=== PATIENT | male | born 1960 | race Hispanic/Latino ===

== ENCOUNTER 2018-10-05 08:44 | Emergency (ER) | payer OTHER ==
[2018-10-05 10:21] LABS: Basophils % (Auto) 0.4 % (0.0-1.8); Eosinophils # (Auto) 0.4 K/mm3 (0.0-0.4); Eosinophils % (Auto) 3.3 % (0.0-4.3); Hematocrit 46.6 % (35.5-45.6); Hemoglobin 16.2 gm/dl (11.8-15.2); Lymphocytes # (Auto) 1.4 K/mm3 (1.2-5.4); Lymphocytes % (Auto) 11.1 % (13.4-35.0); Mean Corpuscular HGB Conc 35 % (32-34); Mean Corpuscular Volume 90 fl (84-94); Monocytes # (Auto) 1.1 K/mm3 (0.0-0.8); Monocytes % (Auto) 8.9 % (0.0-7.3); Platelet Count 280 K/mm3 (140-440); Red Blood Count 5.17 M/mm3 (3.65-5.03); Red Cell Distribution Width 13.2 % (13.2-15.2)
[2018-10-05 10:32] LABS: INR 0.94 (0.87-1.13)
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
[2018-10-05 10:47] LABS: Alanine Aminotransferase 25 units/L (7-56); BUN/Creatinine Ratio 15; Blood Urea Nitrogen 15 mg/dL (9-20); Calcium 9.3 mg/dL (8.4-10.2); Hemolysis Index 14
--- NOTE | 2018-10-05 10:54 | XRay Report ---
CHEST 1 VIEW INDICATION: Syncope. COMPARISON: None FINDINGS: Support devices: None. Heart: Within normal limits. Lungs/Pleura: No acute air space or interstitial disease. Additional findings: None. IMPRESSION: No acute findings. Signer Name: Shayan Burks Jr, MD Signed: 10/05/2018 10:50 AM Workstation Name: [id number]
--- NOTE | 2018-10-05 11:27 | Cat Scan Report ---
CT BRAIN: 10/05/2018 INDICATION / CLINICAL INFORMATION: Syncope. COMPARISON: None available. FINDINGS: BRAIN/INTRACRANIAL STRUCTURES: Unenhanced CT images of the brain demonstrate no evidence of acute int racranial abnormality. Ventricles and sulci are normal in size and shape. Some patchy areas of white matter hypoattenuation is present in the subcortical white matter of the c erebral hemispheres bilaterally, consistent with small vessel ischemic change. Demyelination could brown ve a similar appearance, in the proper clinical circumstances. There is no evidence of acute large vessel territory ischemic injury, hemorrhage, or mass. There are no abnormal extra-axial fluid collections. EXTRACRANIAL STRUCTURES: Unremarkable. IMPRESSION: No evidence of acute abnormality. Patchy areas of white matter hypoattenuation is described above. All CT scans at this location are performed using dose reduction to ALARA by means of automated expos ure control. Signer Name: Montana Welch MD Signed: 10/05/2018 11:22 AM Workstation Name: [id number]
[2018-10-05 12:53] LABS: Bilirubin,Urine NEG (Negative); Blood,Urine NEG (Negative); Color,Urine Yellow (Yellow); Mucus,Urine FEW /HPF; Protein,Urine <15 mg/dL mg/dL (Negative); Urobilinogen,Urine < 2.0 mg/dL (<2.0)
[2018-10-05 13:55] VITALS: BP 167/107
== END 2018-10-05 13:40 | disposition home or self-care (01) ==
LOC: ED 08:44
DX: R55 Syncope and collapse (principal); I10 Essential (primary) hypertension
CPT/HCPCS: 36415; 70450; 71045; 80053; 81001; 84484; 85025; 85610; 93005; 93010